=== PATIENT | female | born 1985 | race Caucasian/White ===

== ENCOUNTER → 2020-07-10 13:49 | Outpatient (CLI) | payer OTHER, SELFPAY ==
--- NOTE | ~2020-07-10 | MR_ITS ---
EXAMINATION: MR lumbar spine wo con DATE: 07/10/2020 14:24 INDICATION: Low back pain with radiculopathy. TECHNIQUE: Magnetic resonance imaging (MRI) of the lumbar spine was performed without intravenous con trast. Sequences included sagittal T2-weighted FSE, sagittal T2-weighted FS FSE, sagittal T1-weighted FSE, and axial T2-weighted FSE. COMPARISON: None FINDINGS: Bone alignment is normal. Vertebral body heights are normal. There is moderately decreased disc height at L4-L5. The distal spinal cord signal intensity is normal. The conus medullaris is at T 12-L1. The following disc levels are specifically discussed: L1-L2: The disc does not extend beyond the endplate margin. There is no facet joint osteoarthritis. T here is no neural foraminal stenosis. There is no central canal stenosis. L2-L3: The disc is bulging and has an annular fissure. There is mild bilateral facet joint osteoarthr itis. There is no neural foraminal stenosis. There is mild central canal stenosis. L3-L4: The disc is bulging and has an annular fissure. There is mild bilateral facet joint osteoarthr itis. There is mild bilateral neural foraminal stenosis. There is mild central canal stenosis. L4-L5: The disc is bulging with superimposed left central extrusion with mass effect on left L5 nerve root in left lateral recess There is mild bilateral facet joint osteoarthritis. There is mild bilate ral neural foraminal stenosis. There is mild central canal stenosis. L5-S1: The disc is bulging and has an annular fissure. There is no facet joint osteoarthritis. There is mild right neural foraminal stenosis. There is no central canal stenosis. IMPRESSION: 1. Moderate lumbar spondylosis. Of note, an extrusion at L4-L5 exerts mass effect on left L5 nerve ro ot. Reviewed, dictated and finalized at location A. IMPRESSION: 1. Moderate lumbar spondylosis. Of note, an extrusion at L4-L5 exerts mass effe ct on left L5 nerve root.
== END ==
PROVIDERS: PCP Internal Medicine; Visit Provider Physician Assistant Medical
DX: M47.26 Other spondylosis with radiculopathy, lumbar region (principal); M51.26 Other intervertebral disc displacement, lumbar region
CPT/HCPCS: 72148

== ENCOUNTER → 2021-08-21 16:33 | Outpatient (CLI) | payer OTHER, SELFPAY ==
--- NOTE | ~2021-08-21 | MR_ITS ---
EXAMINATION: MR lumbar spine wo con DATE: 08/21/2021 17:23 INDICATION: Low back pain. TECHNIQUE: Magnetic resonance imaging (MRI) of the lumbar spine was performed without intravenous con trast. Sequences included sagittal T2-weighted FSE, sagittal T2-weighted FS FSE, sagittal T1-weighted FSE, and axial T2-weighted FSE. COMPARISON: Lumbar spine MRI 07/10/2020 FINDINGS: Bone alignment is normal. Vertebral body heights are normal. There is moderately decreased disc height at L4-L5 and mildly decreased disc at L5-S1. The distal spinal cord signal intensity is n ormal. The conus medullaris is at T12-L1. The following disc levels are specifically discussed: L1-L2: The disc is mildly bulging. There is mild bilateral facet joint osteoarthritis. There is no ne ural foraminal stenosis. There is mild central canal stenosis. L2-L3: The disc is bulging and has an annular fissure. There is mild bilateral facet joint osteoarthr itis. There is mild right neural foraminal stenosis. There is mild central canal stenosis. L3-L4: The disc is bulging and has an annular fissure. There is mild bilateral facet joint osteoarthr itis. There is mild right neural foraminal stenosis. There is mild central canal stenosis. L4-L5: The disc is bulging with superimposed left central extrusion with mass effect on left L5 nerve root in left lateral recess. There is mild bilateral facet joint osteoarthritis. There is mild bilat eral neural foraminal stenosis. There is mild central canal stenosis. There is severe stenosis of lef t lateral recess. L5-S1: The disc is bulging and has an annular fissure. There is no facet joint osteoarthritis. There is mild right neural foraminal stenosis. There is no central canal stenosis. IMPRESSION: 1. Stable moderate lumbar spondylosis. Of note, an extrusion at L4-L5 exerts mass effect on left L5 n erve root. Reviewed, dictated and finalized at location A. TA MAKER IMPRESSION: 1. Stable moderate lumbar spondylosis. Of note, an extrusion at L4-L5 exerts ma ss effect on left L5 nerve root.
== END ==
PROVIDERS: PCP Internal Medicine; Visit Provider Internal Medicine
DX: M51.36 Other intervertebral disc degeneration, lumbar region (principal); M47.896 Other spondylosis, lumbar region; M51.26 Other intervertebral disc displacement, lumbar region
CPT/HCPCS: 72148

== ENCOUNTER → 2022-07-18 16:09 | Outpatient (CLI) | payer OTHER, SELFPAY ==
--- NOTE | ~2022-07-18 | MR_ITS ---
EXAMINATION: MR cervical spine wo con DATE: 07/18/2022 16:42 INDICATION: Hyperreflexia. TECHNIQUE: Magnetic resonance imaging (MRI) of the cervical spine was performed without intravenous c ontrast. Sequences included sagittal T2-weighted FSE, sagittal T2-weighted FS FSE, sagittal T1-weight ed FSE, axial MERGE, and axial T2-weighted FSE. COMPARISON: None FINDINGS: There is 5 degrees dextrocurvature of cervical spine. Vertebral body heights are normal. Th ere is mildly decreased disc height at C5-C6. The spinal cord signal intensity is normal. The followi ng disc levels are specifically discussed: C2-C3: There is a central protrusion. There is no uncovertebral joint osteoarthritis. There is mild r ight and severe left facet joint osteoarthritis. There is no neural foraminal stenosis. There is no c entral canal stenosis. C3-C4: There is a central protrusion. There is no uncovertebral joint osteoarthritis. There is mild b ilateral facet joint osteoarthritis. There is no neural foraminal stenosis. There is no central canal stenosis. C4-C5: There is a left central extrusion. There is mild bilateral uncovertebral joint osteoarthritis. There is no facet joint osteoarthritis. There is no neural foraminal stenosis. There is mild central canal stenosis. C5-C6: There is a left central extrusion. There is no uncovertebral joint osteoarthritis. There is no facet joint osteoarthritis. There is no neural foraminal stenosis. There is mild central canal steno sis. C6-C7: There is a left central extrusion. There is no uncovertebral joint osteoarthritis. There is mi ld left facet joint osteoarthritis. There is no neural foraminal stenosis. There is mild central balwinder l stenosis. C7-T1: There is a central protrusion. There is no uncovertebral joint osteoarthritis. There is mild r ight and moderate left facet joint osteoarthritis. There is mild left neural foraminal stenosis. Ther e is no central canal stenosis. IMPRESSION: 1. Mild cervical spondylosis. Reviewed, dictated and finalized at location A.
== END ==
PROVIDERS: PCP Neurological Surgery; Visit Provider Neurological Surgery
DX: R29.2 Abnormal reflex (principal); M47.892 Other spondylosis, cervical region
CPT/HCPCS: 72141

== ENCOUNTER 2023-04-30 15:26 | Outpatient (CLI) | payer OTHER, SELFPAY ==
--- NOTE | 2023-04-30 15:34 | ECHO_ITS ---
Patient Info Name: Sue Anaya Age: 38 years : 1985 Gender: Female Ht: 66 in Wt: 220 lbs BSA: 2.20 m2 HR: 80 bpm BP: 113 / 81 mmHg Heart Rhythm: Sinus Rhythm Technical Quality: Good Exam Date: 04/30/2023 3:54 PM Exam Location: [facility] Patient Status: Outpatient Admit Date: 04/30/2023 Staff Ordering Physician: Ailyn Colbert PA-C [employer] Operator: Rell Hanks RDCS Attending Provider: Ailyn Colbert PA-C Referring Physician: Sayra PEREZ; Exam Type: CA echo doppler color flow Study Info Indications - cardiac murmur Complete two-dimensional, color flow and Doppler transthoracic echocardiogram is performed. Summary 1. Complete two-dimensional, color flow and Doppler transthoracic echocardiogram is performed. 2. Left ventricular chamber dimension is normal. 3. Left ventricular systolic function is normal, estimated at 65-70%. 4. There is no increased left ventricular wall thickness. 5. The left ventricular diastolic function is normal. 6. Left atrial chamber dimension is mildly enlarged. 7. There is no aortic valve stenosis. 8. There is no mitral valve regurgitation. 9. There is trace tricuspid valve regurgitation. 10. No pulmonary hypertension, estimated pulmonary arterial systolic pressure is 23 mmHg. Left Ventricle Left ventricular chamber dimension is normal. Left ventricular systolic function is normal, estimated at 65-70%. There is no increased left ventricular wall thickness. The left ventricular diastolic function is normal. Right Ventricle Right ventricular chamber dimension is normal. Right ventricular systolic function is normal. Left Atria Left atrial chamber dimension is mildly enlarged. Right Atria Right atrial chamber dimension is normal. Aortic Valve The aortic valve is not well visualized. There is no aortic valve stenosis. There is no aortic valve regurgitation. Pulmonic Valve The pulmonic valve is not well visualized. There is trace pulmonic regurgitation. Mitral Valve The mitral valve has normal leaflets. There is no mitral valve regurgitation. Tricuspid Valve The tricuspid valve leaflets are normal. There is trace tricuspid valve regurgitation. No pulmonary hypertension, estimated pulmonary arterial systolic pressure is 23 mmHg. Pericardium/Pleural The pericardium appears normal. There is no pericardial effusion. Inferior Vena Cava Normal inferior vena cava with >50% collapse upon inspiration consistent with normal right atrial pressure, 5 mmHg. Aorta The aortic root size at the sinus of Valsalva is normal. The prox ascending aorta size is normal. Left Ventricular Outflow Tract Name Value Normal LVOT 2D LVOT Diameter 1.9 cm LVOT Doppler LVOT Peak Gradient 6 mmHg LVOT Mean Gradient 3 mmHg LVOT VTI 35 cm LVOT VTI/AV VTI Ratio 0.9 LVOT Stroke Volume 97 ml LVOT CO 4.6 l/min LVOT CI 2.1 l/min/m2 Pulmonic Valve Name
== END 2023-04-30 15:27 | disposition home or self-care (01) ==
PROVIDERS: PCP Physician Assistant Medical; Visit Provider Physician Assistant Medical
DX: R01.1 Cardiac murmur, unspecified (principal)
CPT/HCPCS: 93306

== ENCOUNTER 2024-01-06 16:05 | Outpatient (CLI) | payer OTHER, SELFPAY ==
--- NOTE | ~2024-01-06 | XR_ITS ---
XR wrist RT 2V DATE: 01/06/2024 16:17 INDICATION: Right wrist pain TECHNIQUE: AP and lateral views COMPARISON: None FINDINGS: Mild osteoarthritis at first carpometacarpal joint. No fracture or dislocation, periosteal reaction or bone destruction, erosive change or chondrocalcinosis. IMPRESSION: Mild osteoarthritis at first carpometacarpal joint Reviewed, dictated and finalized at location A.
== END 2024-01-06 16:06 ==
PROVIDERS: PCP Physician Assistant; Visit Provider Physician Assistant
DX: M19.031 Primary osteoarthritis, right wrist (principal)
CPT/HCPCS: 73100

== ENCOUNTER 2024-11-05 15:10 | Outpatient (CLI) | payer OTHER, SELFPAY ==
--- NOTE | ~2024-11-05 | XR_ITS ---
EXAMINATION: XR foot RT min 3V DATE: 11/05/2024 15:55 INDICATION: Right foot pain. TECHNIQUE: 4 views of right foot were obtained. COMPARISON: None. FINDINGS: Alignment is normal. No fracture. There is mild osteoarthritis of talonavicular joint. Ther e are enthesophytes at the posterior and plantar aspects of calcaneal tuberosity. IMPRESSION: 1. Mild osteoarthritis of talonavicular joint. Reviewed, dictated and finalized at location A. LION CHIEF
== END 2024-11-05 15:11 | disposition home or self-care (01) ==
PROVIDERS: PCP Physician Assistant Medical; Visit Provider Physician Assistant
DX: M19.071 Primary osteoarthritis, right ankle and foot (principal)
CPT/HCPCS: 73630